=== PATIENT | female | born 1945 | race Caucasian/White ===

== ENCOUNTER → 2016-12-12 | Outpatient (CLI) | payer MEDICARE, MEDICAID ==
[~2016-12-12] MED LIST: ALLO300T2 PO; ATOR40TA70 PO; EZET10TA PO; FURO40TA5 PO; GABA-531 PO; METO-293 PO; TRAM50TA3 PO
== END | disposition home or self-care (01) ==
LOC: RAD 10:02
PROVIDERS: ATTEND Orthopaedic Surgery Orthopaedic Trauma
DX: S82.52XA Displaced fracture of medial malleolus of left tibia, initial encounter for closed fracture (principal); X58.XXXA Exposure to other specified factors, initial encounter; Y93.89 Activity, other specified; Y92.89 Other specified places as the place of occurrence of the external cause; Y99.8 Other external cause status
CPT/HCPCS: 73610

== ENCOUNTER → 2017-02-05 | Outpatient (CLI) | payer MEDICARE, MEDICAID | END | disposition home or self-care (01) | LOC: RAD 10:34 | PROVIDERS: ATTEND Orthopaedic Surgery Orthopaedic Trauma | DX: S82.52XK Displaced fracture of medial malleolus of left tibia, subsequent encounter for closed fracture with nonunion (principal); M85.88 Other specified disorders of bone density and structure, other site; X58.XXXD Exposure to other specified factors, subsequent encounter | CPT/HCPCS: 73610 ==

== ENCOUNTER 2017-11-06 08:40 | Inpatient (IN) | payer MEDICARE, MEDICAID ==
[~2017-11-06] VITALS: Ht 165.1 cm; Wt 86.6 kg
[~2017-11-06 08:40] MED LIST changes: -EZET10TA PO; +ZET10 PO
[2017-11-06] MEDS ORDERED: NALOXONE HCL 1 MG/ML 2ML VIAL IV ONE (09:00)
[2017-11-06] MEDS ORDERED: SODIUM CHLORIDE 0.9% 1000ML BAG (SEPSIS BOLUS) IV ONE (09:00)
[2017-11-06 09:24] LABS: BG BASE EXCESS -0.1 mmol/L (-2.0-2.0); BG CARBOXYHEMOGLOBIN 0.4 % (0.5-1.5); BG DEOXYHEMOGLOBIN 1.4 % (0.0-5.0); BG HCO3 ACT 24.9 mmol/L (22.0-26.0); BG METHEMOGLOBIN 0.2 % (0.0-1.5); BG OXYGEN SATURATION 98.6 % (92.0-98.5); BG PCO2 41.9 mmHg (35.0-45.0); BG PH 7.392 (7.350-7.450); BG PO2 135.9 mmHg (75.0-100.0); BG SAMPLE SITE RIGHT BRACHIAL; BG TOTAL HEMOGLOBIN 11.6 g/dL (12.0-18.0); BG VENT MODE NASAL CANNULA
[2017-11-06 09:29] LABS: BASOPHILS % 0.2 % (0.0-2.0); HEMATOCRIT. 32.3 % (36.0-48.0); HEMOGLOBIN. 10.7 g/dL (12.0-16.0); LYMPHOCYTES % 19.6 % (20.0-50.0); MEAN CORPUSCULAR HEMOGLOBIN 31.3 pg (28.0-32.0); MEAN CORPUSCULAR VOLUME 94.7 fL (81.0-99.0); MEAN PLATELET VOLUME 8.7 fl (7.4-10.4); MONOCYTES % 8.7 % (2.0-8.0); NEUTROPHILS % 70.5 % (40.0-76.0); PLATELET 191 x1000/uL (130-400); RED BLOOD CELL COUNT 3.41 mill/uL (4.2-5.4); RED CELL DISTRIBUTION WIDTH 17.2 % (11.6-14.6)
[2017-11-06] MEDS ORDERED: DOPAMINE 400MG PREMIX 250 ML IV ONE (09:30)
[2017-11-06 09:39] LABS: PARTIAL THROMBOPLASTIN TIME 24.3 sec (23.4-31.0); PROTHROMBIN TIME 10.5 sec (9.4-11.6)
[2017-11-06 09:40] LABS: CHLORIDE 102 mEq/L (98-107)
[2017-11-06 09:42] LABS: AMMONIA < 25 uMol/L (<32)
[2017-11-06 10:19] LABS: CLARITY URINE CLEAR (CLEAR); COLOR URINE YELLOW (YELLOW); KETONES URINE NEGATIVE (NEGATIVE); LEUKOCYTE ESTERASE URINE NEGATIVE (NEGATIVE); NITRITE URINE NEGATIVE (NEGATIVE); OCCULT BLOOD URINE NEGATIVE (NEGATIVE); PROTEIN URINE NEGATIVE (NEGATIVE); SPECIFIC GRAVITY URINE 1.015 (1.005-1.030); UROBILINOGEN URINE 0.2 E.U./dL (0.2-1.0)
[2017-11-06] MEDS ORDERED: ASPIRIN 300MG SUPP PR ONE (11:15)
[2017-11-06] MEDS ORDERED: MAGNESIUM/ALUMINUM HYDROXIDE/SIMETHICONE 30ML UDC PO PRN (12:00)
[2017-11-06] MEDS ORDERED: ONDANSETRON HCL 4MG/2ML VIAL IV PRN (12:00)
[2017-11-06] MEDS ORDERED: NA PHOS,M-B/NA PHOS,DI-BA ENEMA 118ML PR PRN (12:00)
[2017-11-06] MEDS ORDERED: GUAIFENESIN 200MG/10ML SUGAR FREE UDC PO PRN (12:00)
[2017-11-06] MEDS ORDERED: ACETAMINOPHEN 325MG TABLET PO PRN (12:00)
[2017-11-06] MEDS ORDERED: KETOROLAC 15MG/ML VIAL IV PRN (12:00)
[2017-11-06] MEDS ORDERED: DIPHENHYDRAMINE 50MG/ML VIAL IV PRN (12:00)
[2017-11-06] MEDS ORDERED: CLONIDINE 0.1MG TABLET PO PRN (12:00)
[2017-11-06] MEDS ORDERED: DOCUSATE SODIUM 100MG CAPSULE PO PRN (12:00)
[2017-11-06] MEDS ORDERED: NITROGLYCERIN 0.4MG TABLET SL SL PRN (12:00)
[2017-11-06] MEDS ORDERED: IPRATROPIUM/ALBUTEROL 0.5-3(2.5)MG/3ML NEB INH PRN (12:00)
[2017-11-06 12:31] LABS: T4 FREE 0.85 ng/dL (0.76-1.46)
[2017-11-06 12:50] LABS: FOLIC ACID (FOLATE) SERUM 8.4 ng/mL (>5.38)
[2017-11-06 14:39] LABS: *AMPHETAMINES SCREEN URINE NEGATIVE (NEGATIVE); *BARBITURATES SCREEN URINE NEGATIVE (NEGATIVE); *BENZODIAZEPINES SCREEN URINE NEGATIVE (NEGATIVE); *COCAINE SCREEN URINE NEGATIVE (NEGATIVE); CANNABINOID URINE SCREEN NEGATIVE (NEGATIVE); METHADONE URINE SCREEN NEGATIVE (NEGATIVE); OPIATES URINE SCREEN NEGATIVE (NEGATIVE); PHENCYCLIDINE URINE SCREEN NEGATIVE (NEGATIVE)
[2017-11-06 16:00] VITALS: BP 110/67
[2017-11-06] MEDS ORDERED: DEXTROSE 50% WATER 50ML SYRINGE IV PRN (16:00)
[2017-11-06] MEDS ORDERED: ENOXAPARIN 30MG/0.3ML SYR SUBCUT SCH (16:00)
[2017-11-06 16:31] VITALS: BP 110/67
[2017-11-06] MEDS: BLOOD SUGAR DIAGNOSTIC STRIP TEST SCH ×2 (16:45→21:31)
[2017-11-06] MEDS: INSULIN LISPRO 100 UNITS/ML SUBCUT SCH ×2 (17:15→21:00)
[2017-11-06] MEDS: SODIUM CHLORIDE 0.9% 1,000 ML IV SCH (18:06)
[2017-11-06] MEDS: ENOXAPARIN 80MG/0.8ML SYR SUBCUT SCH (18:15)
[2017-11-06 20:00] VITALS: BP 163/80
[2017-11-06] MEDS: METOPROLOL TARTRATE 25MG TABLET PO SCH (21:30)
[2017-11-06] MEDS: FAMOTIDINE 20MG/2ML VIAL IV SCH (21:30)
[2017-11-06] MEDS: ATORVASTATIN CALCIUM 10MG TABLET PO SCH (23:58)
[2017-11-07] VITALS: BP 145/71
[2017-11-07 04:00] VITALS: BP 149/75
[2017-11-07 05:30] LABS: BASOPHILS % 0.1 % (0.0-2.0); EOSINOPHILS % 0.1 % (0.0-5.0); HEMATOCRIT. 35.3 % (36.0-48.0); HEMOGLOBIN. 11.3 g/dL (12.0-16.0); LYMPHOCYTES % 15.9 % (20.0-50.0); MEAN CORPUSCULAR HEMOGLOBIN 30.9 pg (28.0-32.0); MEAN CORPUSCULAR VOLUME 96.1 fL (81.0-99.0); MEAN PLATELET VOLUME 9.2 fl (7.4-10.4); MONOCYTES % 7.5 % (2.0-8.0); NEUTROPHILS % 76.4 % (40.0-76.0); PLATELET 159 x1000/uL (130-400); RED BLOOD CELL COUNT 3.67 mill/uL (4.2-5.4); RED CELL DISTRIBUTION WIDTH 17.6 % (11.6-14.6)
[2017-11-07 05:59] LABS: CHLORIDE 113 mEq/L (98-107)
[2017-11-07] MEDS: SODIUM CHLORIDE 0.9% 1,000 ML IV SCH ×2 (06:19→18:51)
[2017-11-07] MEDS: INSULIN LISPRO 100 UNITS/ML SUBCUT SCH ×4 (06:19→21:00)
[2017-11-07] MEDS: BLOOD SUGAR DIAGNOSTIC STRIP TEST SCH ×4 (06:19→21:00)
[2017-11-07 08:00] VITALS: BP 165/71
[2017-11-07] MEDS: METOPROLOL TARTRATE 25MG TABLET PO SCH ×2 (09:00→21:52)
[2017-11-07] MEDS: ASPIRIN 325MG EC TABLET PO SCH (09:00)
[2017-11-07] MEDS: ENOXAPARIN 80MG/0.8ML SYR SUBCUT SCH (09:01)
[2017-11-07 12:00] VITALS: BP_SYST 155; BP_SYST 162; BP_DIAS 82; BP_DIAS 87
[2017-11-07 16:00] VITALS: BP 162/87
[2017-11-07] MEDS: ENOXAPARIN 100MG/ML SYR SUBCUT SCH (17:28)
[2017-11-07 20:00] VITALS: BP 163/74
[2017-11-07] MEDS: FAMOTIDINE 20MG/2ML VIAL IV SCH (21:51)
[2017-11-07] MEDS: ATORVASTATIN CALCIUM 10MG TABLET PO SCH (21:51)
[2017-11-08] VITALS: BP 165/67
[2017-11-08 04:00] VITALS: BP 154/83
[2017-11-08] MEDS: ENOXAPARIN 100MG/ML SYR SUBCUT SCH ×2 (06:00→18:47)
[2017-11-08] MEDS: BLOOD SUGAR DIAGNOSTIC STRIP TEST SCH ×4 (06:45→21:12)
[2017-11-08] MEDS: INSULIN LISPRO 100 UNITS/ML SUBCUT SCH ×4 (07:15→21:00)
[2017-11-08 07:23] LABS: BASOPHILS % 0.5 % (0.0-2.0); EOSINOPHILS % 0.6 % (0.0-5.0); HEMATOCRIT. 33.1 % (36.0-48.0); HEMOGLOBIN. 10.9 g/dL (12.0-16.0); LYMPHOCYTES % 17.4 % (20.0-50.0); MEAN CORPUSCULAR HEMOGLOBIN 31.3 pg (28.0-32.0); MEAN CORPUSCULAR VOLUME 95.1 fL (81.0-99.0); MEAN PLATELET VOLUME 9.2 fl (7.4-10.4); MONOCYTES % 9.6 % (2.0-8.0); NEUTROPHILS % 71.9 % (40.0-76.0); PLATELET 191 x1000/uL (130-400); RED BLOOD CELL COUNT 3.48 mill/uL (4.2-5.4); RED CELL DISTRIBUTION WIDTH 17.7 % (11.6-14.6)
[2017-11-08 07:42] LABS: CHLORIDE 115 mEq/L (98-107)
[2017-11-08 08:00] VITALS: BP 157/83
[2017-11-08] MEDS: ASPIRIN 325MG EC TABLET PO SCH (08:47)
[2017-11-08] MEDS: METOPROLOL TARTRATE 25MG TABLET PO SCH ×2 (08:47→21:12)
[2017-11-08] MEDS: SODIUM CHLORIDE 0.9% 1,000 ML IV SCH ×2 (10:25→21:20)
[2017-11-08 12:00] VITALS: BP 139/71
[2017-11-08 16:00] VITALS: BP 146/80
[2017-11-08 20:00] VITALS: BP 150/76
[2017-11-08] MEDS: ATORVASTATIN CALCIUM 10MG TABLET PO SCH (21:11)
[2017-11-08] MEDS: FAMOTIDINE 20MG/2ML VIAL IV SCH (21:11)
[2017-11-09] VITALS: BP 159/84
[2017-11-09 04:00] VITALS: BP 145/85
[2017-11-09] MEDS: BLOOD SUGAR DIAGNOSTIC STRIP TEST SCH ×2 (06:28→12:08)
[2017-11-09] MEDS: INSULIN LISPRO 100 UNITS/ML SUBCUT SCH ×2 (06:29→12:08)
[2017-11-09] MEDS: ENOXAPARIN 100MG/ML SYR SUBCUT SCH (06:32)
[2017-11-09 07:47] VITALS: BP 150/76
[2017-11-09] MEDS: METOPROLOL TARTRATE 25MG TABLET PO SCH (09:28)
[2017-11-09] MEDS: ASPIRIN 325MG EC TABLET PO SCH (09:28)
[2017-11-09] MEDS: SODIUM CHLORIDE 0.9% 1,000 ML IV SCH (09:54)
[2017-11-09 11:38] VITALS: BP 153/73
[2017-11-09 14:07] VITALS: BP 20/153
== END 2017-11-09 16:30 | disposition home or self-care (01) | DRG 682 ==
LOC: ER 08:56 → 5WST 11:26 → EDBEDREQTM 11:30 → EDBEDREQ 11:30 → SUPCPDRO 11:50 → ENRESERV 13:28 → 5WST 11-08 13:40
PROVIDERS: ADMIT Internal Medicine; ATTEND Internal Medicine
DX: N17.0 Acute kidney failure with tubular necrosis (principal); G93.40 Encephalopathy, unspecified; I82.402 Acute embolism and thrombosis of unspecified deep veins of left lower extremity; D63.8 Anemia in other chronic diseases classified elsewhere; E11.9 Type 2 diabetes mellitus without complications; I10 Essential (primary) hypertension; I25.10 Atherosclerotic heart disease of native coronary artery without angina pectoris; M13.0 Polyarthritis, unspecified; Z79.4 Long term (current) use of insulin; Z79.899 Other long term (current) drug therapy; Z90.710 Acquired absence of both cervix and uterus
CPT/HCPCS: 36415; 36600; 51702; 70450; 70551; 71045; 80053; 80061; 80305; 81003; 82140; 82375; 82607; 82746; 82805; 82962; 83036; 83540; 83550; 83605; 83880; 84439; 84443; 84484; 85025; 85610; 85730; 86850; 86900; 87040; 87086; 92610; 93005; 93970; 96361; 96374; 97162; 97166; 99291; J1200; J1650; J2310; J2405; J3490; J7030; A4315